=== PATIENT | male | born 2000 | race Caucasian/White ===

== ENCOUNTER 2024-05-16 09:58 | Outpatient (AMB) | payer OTHER, SELFPAY ==
--- NOTE | 2024-05-16 10:02 | MHC.PC.OV ---
Vital Signs 05/16/24 10:13 Height 5 ft 7 in Weight 180 lb 4 oz BMI 28.2 BP 124/78 Blood Pressure Location Lt brachial Position Sitting Respiration 16 Pulse 78 Pulse Source Pulse Oximeter Temp 97.9 F Temp Source Oral Pulse Oximetry (%) 100 Oxygen Delivery Method Room Air Intake Visit Reasons: Establish Care Intake Note: patient here for new patient visit. 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: No Allergies apple Allergy (Unknown, Uncoded 05/16/24 10:21) Hives monteiro Allergy (Unknown, Uncoded 05/16/24 10:21) Hives plum Allergy (Unknown, Uncoded 05/16/24 10:21) Hives unspecified nuts Allergy (Unknown, Uncoded 05/16/24 10:21) hives watermelon Allergy (Unknown, Uncoded 05/16/24 10:21) Hives Tobacco use date assessed: 05/16/24 Dental Screening Dental Screen Date: 05/16/24 Did you have a dental visit in the last 12 months?: No Did you have a dental problem in the last 6 months where you did not have access to dental care?: No Was dental information given to patient?: Patient has dentist HPI HPI Comments History of Present Illness Details New patient Prior PCP:? [facility] [place]. Dr Gray Campbell Last office visit/CPE: Over a year Acute issue(s): Anxiety, Depression -He is on Welbutrin 150mg daily Dandruff -He is on ketoconazole shampoo daily He notes history of telemedicine psychotherapy since July 2023. He stopped going after he found that his son was murdering people He was followed by a psychiatrist in the [place] area. However, he moved to [facility] after school and his psychiatrist required that he followed up in the office for her to continue refilling his Welbutin. He has a telehealth visit with his psychiatrist 2 weeks ago and his Welbutrin was refilled He notes that his anxiety and depressive symptoms are not the worst they have been. 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 He his anxious about the new environment and getting to know new coworkers. He admits to sleeping well. He has not been exercising unit after he stared his new job. He has not been making healthy dietary choices. He wishes to continue with the current Wellbutrin dose. He wants to connect with a new therapist via telemedicine. PMHx: Anxiety, depression, dandruff SurgHx: None FHx: MGF: Alcohol abuse SocHx: Nonsmoker. Uses 3-4 nicotine pouches daily. Drinks alcohol occasionally. He smokes cannabis, 1 joint and 2 vapes daily for the past 3 years He is not currently sexually active and has no concerns for STDs [facility] Medical History (Updated 05/16/24 @ 10:58 by Edward Palmer CNP) History of bipolar disorder Depression Anxiety Sinusitis Male circumcision Family History (Updated 05/16/24 @ 10:10 by Fani Valenzuela) Maternal Grandfather Alcohol abuse FH: mental illness Maternal Aunt Substance abuse Social History (Updated 05/16/24 @ 10:10 by Fani Valenzuela) Housing: Apartment Patient Tobacco Use Status: Never used Tobacco e-Cigarette/Vaping Use: Former Use Second Hand Smoke Exposure: No Substance Use Type: Marijuana service: No Current occupational status: employed Current occupation: data Current occupational exposures/hazards: No Cognitive needs: No Hearing needs: No Vision needs: No Questionnaire PHQ-9 Over the last 2 weeks, how often have you been bothered by any of the following problems? 1. Little interest or pleasure in doing things: several days 2. Feeling down, depressed, or hopeless: several days 3. Trouble falling or staying asleep, or sleeping too much: several days 4. Feeling tired or having little energy: more than half the days 5. Poor appetite or overeating: several days 6. Feeling bad about yourself - or that you are a failure or have let yourself or your family down: several days 7. Trouble concentrating on things, such as reading the newspaper or watching television: several days 8. Moving or speaking so slowly that other people could have noticed. Or the opposite - being so fidgety or restless that you have been moving around a lot more than usual: not at all 9. Thoughts that you would be better off or of hurting yourself in some way: not at all Total score: 8 Depression Screening Interpretation: Positive Depression Screening Follow-up: Existing condition and In treatment Depression Screening Done: Yes 09593 - PHQ-9 Billing: Yes Source: Developed by Drs. Francois Srivastava, Joana B.W. Ryan Mckenna and colleagues, with an educational candelario from [employer]. Thrive Questionnaire Date Thrive assessed: 05/16/24 I am a: Patient What is your living situation today?: I have a steady place to live Within the past 12 months, did the food you bought not last and you didn't have the money to get more?: Never true Within the past 12 months, did you worry whether your food would run out before you got money to buy more?: Never true Do you have trouble paying for medicines?: No Do you have trouble getting transportation to medical appointments?: No Do you have trouble paying your heating and electricity bill?: No Do you have trouble taking care of your child, family member or friend?: No Do you have trouble with day-to-day activities such as bathing, preparing meals, shopping, managing finances, etc.?: No Are you currently unemployed and looking for a job?: No Are you interested in more education?: No Please select the resources that you would like help with: None Currently or been in a relationship where the following occur: No concerns reported THRIVE Score: 0 AUDIT C Alcohol Use Questionnaire (AUDIT-C) 1. How often do you have a drink containing alcohol?: 2-4 times a month 2. How many drinks containing alcohol do you have on a typical day when you are drinking?: 3 or 4 3. How often do you have six or more drinks on one occasion?: Less than monthly Total Score: 4 Score Reviewed/Action Taken: Yes CONOR-7 AMB Questionnaire CONOR-7 Date CONOR - 7 assessed: 05/16/24 Feeling nervous, anxious, or on edge: 2 = More than half the days Not being able to stop or control worryin = Several days Worrying too much about different things: 2 = More than half the days Trouble relaxin = Several days Being so restless that it is hard to sit still: 1 = Several days Becoming easily annoyed or irritable: 1 = Several days Feeling afraid as if something awful might happen: 1 = Several days Total CONOR-7 score (0-4 normal; 5-9 mild; 10-14 moderate; 15-21 severe): 9 Source: Developed by Drs. Francois Srivastava, Ryan Sim and colleagues, with an educational candelario from [employer]. CONOR-7 Assessment Billing CONOR-7 Assessment Tool: CONOR-7 Assessment 13523 Review of Systems Const Details: Denies chills, Denies fatigue, Denies fever(s), Denies headache(s) and Denies weakness HEENT Denies change in vision, Denies dizziness, Denies headache(s), Denies hearing loss, Denies nasal congestion, Denies sinus pain, Denies sinus pressure and Denies sore throat Card Denies chest pain, Denies lightheadedness, Denies dyspnea and Denies other (palpitations) Resp Denies cough, Denies dyspnea and Denies wheezing GI Denies abdominal pain, Denies melena, Denies hematochezia, Denies change in bowel habits, Denies dyspepsia and Denies nausea Denies hematuria and Denies dysuria Musc Denies abnormal gait, Denies myalgias, Denies arthralgias, Denies numbness and Denies tingling Skin/Breast Denies rash, Denies unusual bruising and Denies wounds Neuro Denies abnormal gait, Denies dizziness, Denies headache(s), Denies memory loss, Denies numbness, Denies Sensory deficit (Neuro), Denies tingling and Denies weakness Psych Reports anxiety, Reports depression and Denies memory loss Endo Denies cold intolerance, Denies fatigue, Denies heat intolerance, Denies polydipsia and Denies polyuria Jose Elias/Lymph Denies easy bleeding and Denies easy bruising Aller/Immun Denies wheezing Physical exam (Primary Care) Vital Signs: Last Vital Signs Temp 97.9 F 05/16/24 10:13 Pulse 78 05/16/24 10:13 Resp 16 05/16/24 10:13 BP 124/78 05/16/24 10:13 Pulse Ox 100 05/16/24 10:13 Oxygen Delivery Method Room Air 05/16/24 10:13 BMI result Body Mass Index 28.2 Tobacco/Smoking Status: Tobacco use Status Tobacco use date assessed 05/16/24 05/16/24 10:10 Patient Tobacco Use Status Never used Tobacco 05/16/24 10:10 e-Cigarette/Vaping Use Former Use 05/16/24 10:10 PHQ-9: PHQ-9 Score PHQ-9: Total score 8 05/16/24 14:24 Depression Screening Interpretation: Positive Depression Screening Follow-up: Existing condition and In treatment Thrive Assessment: Date of Thrive Assessment Date Thrive assessed 05/16/24 05/16/24 10:17 Currently or been in a relationship where the following occur: No concerns reported Const Other: General: no acute distress, well developed, alert and awake Nutritional Appearance: well nourished Orientation/consciousness: patient oriented x3 HENMT Head: Yes normocephalic and Yes atraumatic Ears: hearing grossly normal bilaterally and TM's normal bilaterally General nose exam: Normal external nose present and Normal nares present Mouth: Normal oral and palatal mucosa present and moist mucous membranes Teeth and gingiva: dentition normal Throat: Yes oropharynx normal Eyes Pupils: Equal, round and reactive pupils present and Pupil accommodation reflex normal EOM: EOMs intact bilaterally Neck Neck: Yes normal visual inspection, Yes no lymphadenopathy and Yes trachea midline Thyroid: Thyroid normal Carotids: no bruits Lymphatic: no lymphadenopathy noted Chest Chest palpation & inspection: normal inspection of the chest Resp Effort & Inspection: normal respiratory effort Auscultation: clear to auscultation bilaterally Cardio Rate: regular rate Rhythm: regular rhythm Heart sounds: S1 normal heart sound present, S2 normal heart sound present, no gallops, no murmurs and no rubs Bruits: no abdominal aortic bruits and no carotid bruits GI Palpation (GI): No Abdominal aortic bruit present, Soft to palpation, nontender, No hepatosplenomegaly present and No Rebound tenderness present Auscultation: normal bowel sounds General: Yes no CVA tenderness Back/Spine/Pelvis Back: no CVA tenderness Cervical Spine: cervical ROM normal and No Cervical spine tenderness Thoracic/Lumbar Spine: thoraco-lumbar ROM normal, No pain with thoraco-lumbar ROM, No thoracic spinal tenderness and No lumbar spinal tenderness Skin General: warm and dry. Normal skin color. Normal skin turgor. Dry scalp notes with dandruff noted Lesions: no lesions Rashes: no rashes Trauma: no lacerations or abrasions Wounds: no wounds Nails: normal Neuro General: patient oriented x3, gait normal and CN's II-XI intact bilaterally Cranial nerves: Yes Equal, round and reactive pupils present Cognition (Neuro): normal cognition Gait exam (Neuro): Normal gait present Motor exam (neuro): 5/5 motor strength present throughout Sensory Exam: No Sensory deficit (Neuro) Deep tendon reflexes (DTR's): Right patellar reflex intensity grade: 2+ and Left patellar reflex intensity grade: 2+ Extrem General: Yes normal to inspection, No edema and No calf tenderness Psych Appearance: grossly normal Affect: normal affect Attitude: cooperative Thought process: Normal thought process present Assessment and Plan Assessment & Plan (1) Normal physical examination, routine: Code(s): Z00.00 - Encounter for general adult medical examination without abnormal findings Plan: No significant physical restrictions or limitations noted Continue current treatment regimen Healthy diet and routine exercise encouraged Encouraged to schedule an appointment with his dentist for routine dental care Advised to get lab work done and follow-up in 3-4 weeks for telehealth visit for anxiety, depression, and labs review Return with symptoms or concerns Verbalized understanding and agreed with thetreatment plan (2) Anxiety and depression: Code(s): F41.9 - Anxiety disorder, unspecified; F32.A - Depression, unspecified Plan: He notes that his anxiety and depressive symptoms are not the worst they have been. He started a new job 3 weeks ago and is anxious about the new work environment and new coworkers. Sleep has not been an issue PHQ-9 and CONOR-7 scores revealed mild depression and anxiety Continue to take Wellbutrin 150 mg daily Routine exercise encouraged Advised to stop or limit cannabis use as this may worsen his anxiety and depressive symptoms He met with the [facility] who will refer him to a therapist Follow up in 3-4 weeks or sooner with symptoms or concerns Verbalized understanding and agreed with the treatment plan (3) Dandruff: Code(s): L21.0 - Seborrhea capitis Plan: Dry scalp notes with dandruff noted Ketoconazole shampoo as prescribed (4) Nicotine use: Code(s): Z72.0 - Tobacco use Plan: Uses 3-4 nicotine pouches daily Declines medication treatment for nicotine use Instructed on health risks and complications of nicotine use He may inform his PCP if he changes his mind on medication treatment Verbalized understanding and agreed with the plan (5) Laboratory tests ordered as part of a complete physical exam (CPE): Code(s): Z00.00 - Encounter for general adult medical examination without abnormal findings Plan: Fasting labs ordered as part of a complete physical exam. Advised to fast for at least 10 hours before getting labs drawn. May drink water Verbalized understanding and agreed with treatment plan. Orders: Orders Lipid Panel Today Z00.00 - Encounter for general adult medical examination without abnormal findings Complete Blood Count Auto Diff Today Z00.00 - Encounter for general adult medical examination without abnormal findings Comprehensive Cades. Panel Fast Today Z00.00 - Encounter for general adult medical examination without abnormal findings TSH reflex Free T4 Today Z00.00 - Encounter for general adult medical examination without abnormal findings UA CC w/rflx Micro + Cult Today Z00.00 - Encounter for general adult medical examination without abnormal findings Coding Level of Care Code New Pt Level 3 (46696) New Pt Prev Care 18-39yr(67175 Diagnoses Normal physical examination, routine Z00.00 Anxiety and depression F41.9; F32.A Dandruff L21.0 Nicotine use Z72.0 Laboratory tests ordered as part of a complete physical exam (CPE) Z00.00 Additional Codes CONOR-7 Assessment Billing - CONOR-7 Assessment Tool: CONOR-7 Assessment [id number] ([id number])
[2024-05-16 10:13] VITALS: BP 124/78; PULSE 78; RESP 16; TEMP 36.6; O2SAT 100; BMI 28.2
== END 2024-05-16 10:57 | disposition home or self-care (01) ==
PROVIDERS: Visit Provider Nurse Practitioner Family
DX: Z00.00 Encounter for general adult medical examination without abnormal findings (principal); F41.9 Anxiety disorder, unspecified; F32.A Depression, unspecified; L21.0 Seborrhea capitis; Z72.0 Tobacco use
CPT/HCPCS: 99385

== ENCOUNTER 2024-06-27 12:04 | Outpatient (AMB) | payer OTHER, SELFPAY ==
--- NOTE | 2024-06-27 12:09 | A.OFFPC_ITS ---
Vital Signs 06/27/24 12:20 Height 5 ft 7 in Weight 180 lb 4 oz BMI 28.2 BP 112/78 Blood Pressure Location Lt brachial Position Sitting Respiration 16 Pulse 80 Pulse Source Pulse Oximeter Temp 97.3 F Temp Source Oral Pulse Oximetry (%) 99 Oxygen Delivery Method Room Air Intake Visit Reasons: 3-4 wks anxiety, depression, labs Intake Note: patient here for 3-4 wks anxiety, depression and labs. 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 Allergies apple Allergy (Unknown, Uncoded 06/27/24 12:45) Hives monteiro Allergy (Unknown, Uncoded 06/27/24 12:45) Hives plum Allergy (Unknown, Uncoded 06/27/24 12:45) Hives unspecified nuts Allergy (Unknown, Uncoded 06/27/24 12:45) hives watermelon Allergy (Unknown, Uncoded 06/27/24 12:45) Hives Medication List - Last Reconciled 06/27/24 by Edward Palmer CNP bupropion HCl XL 150 mg PO DAILY ketoconazole 2% topical Tobacco use date assessed: 06/27/24 Dental Screening Dental Screen Date: 06/27/24 Did you have a dental visit in the last 12 months?: Yes Did you have a dental problem in the last 6 months where you did not have access to dental care?: No Was dental information given to patient?: Patient has dentist HPI HPI Comments History of Present Illness Details 23-year-old male, accompanied by his mot her, presents for anxiety and depression follow-up He admits to taking Wellbutrin as prescribed without adverse reactions He offers no complaints and denies acute symptoms at the time He reports controlled mood. He generally sleeps well No acute symptoms [facility] Medical History (Updated 05/16/24 @ 10:58 by Edward Palmer CNP) History of bipolar disorder Depression Anxiety Sinusitis Male circumcision Family History (Updated 06/27/24 @ 13:54 by Fani Valenzuela) Maternal Grandfather Alcohol abuse FH: mental illness Crohn's disease Dementia HTN (hypertension) Maternal Aunt Substance abuse Maternal Grandmother HTN (hypertension) HLD (hyperlipidemia) FH: brain aneurysm CHD (congenital heart disease) Paternal Grandmother HTN (hypertension) HLD (hyperlipidemia) Mother HLD (hyperlipidemia) Paternal Grandfather HLD (hyperlipidemia) Aortic aneurysm Prostate cancer Social History (Updated 05/16/24 @ 10:10 by Fani Valenzuela) Housing: Apartment Patient Tobacco Use Status: Never used Tobacco e-Cigarette/Vaping Use: Former Use Second Hand Smoke Exposure: No Substance Use Type: Marijuana service: No Current occupational status: employed Current occupation: data Current occupational exposures/hazards: No Cognitive needs: No Hearing needs: No Vision needs: No Questionnaire PHQ-9 Over the last 2 weeks, how often have you been bothered by any of the following problems? 1. Little interest or pleasure in doing things: several days 2. Feeling down, depressed, or hopeless: several days 3. Trouble falling or staying asleep, or sleeping too much: more than half the days 4. Feeling tired or having little energy: several days 5. Poor appetite or overeating: not at all 6. Feeling bad about yourself - or that you are a failure or have let yourself or your family down: several days 7. Trouble concentrating on things, such as reading the newspaper or watching television: several days 8. Moving or speaking so slowly that other people could have noticed. Or the opposite - being so fidgety or restless that you have been moving around a lot more than usual: not at all 9. Thoughts that you would be better off or of hurting yourself in some way: not at all Total score: 7 Depression Screening Interpretation: Negative Depression Screening Done: Yes 75126 - PHQ-9 Billing: Yes Source: Developed by Drs. Francois Srivastava, Joana Mckenna, Ryan Peres and colleagues, with an educational candelario from [employer]. Thrive Questionnaire Date Thrive assessed: 05/16/24 CONOR-7 AMB Questionnaire CONOR-7 Date CONOR - 7 assessed: 06/27/24 Feeling nervous, anxious, or on edge: 2 = More than half the days Not being able to stop or control worryin = More than half the days Worrying too much about different things: 2 = More than half the days Trouble relaxin = Several days Being so restless that it is hard to sit still: 1 = Several days Becoming easily annoyed or irritable: 1 = Several days Feeling afraid as if something awful might happen: 1 = Several days Total CONOR-7 score (0-4 normal; 5-9 mild; 10-14 moderate; 15-21 severe): 10 Source: Developed by Drs. Francois Srivastava, Joana Mckenna, Ryan Peres and colleagues, with an educational candelario from [employer]. CONOR-7 Assessment Billing CONOR-7 Assessment Tool: CONOR-7 Assessment 71424 Review of Systems Const Details: Const Denies chills, Denies fatigue, Denies fever(s), Denies headache(s) and Denies weakness ENT Denies dizziness and Denies headache(s) Card Denies chest pain, Denies lightheadedness, Denies dyspnea and Denies other (Palpitations) Resp Denies cough, Denies dyspnea, Denies wheezing and Denies other ( shortness of breath) GI Denies abdominal pain, Denies melena, Denies hematochezia, Denies change in bowel habits, Denies dyspepsia and Denies nausea Denies hematuria and Denies dysuria Musc Denies abnormal gait, Denies myalgias, Denies arthralgias, Denies numbness and Denies tingling Skin/Breast Denies rash, Denies unusual bruising and Denies wounds Neuro Denies abnormal gait, Denies dizziness, Denies headache(s), Denies memory loss, Denies numbness, Denies Sensory deficit (Neuro), Denies tingling and Denies weakness Psych Denies anxiety, Denies depression, Denies memory loss Endo Denies cold intolerance, Denies fatigue, Denies heat intolerance, Denies polydipsia and Denies polyuria Aller/Immun Denies wheezing Physical exam (Primary Care) Vital Signs: Last Vital Signs Temp 97.3 F 06/27/24 12:20 Pulse 80 06/27/24 12:20 Resp 16 06/27/24 12:20 BP 112/78 06/27/24 12:20 Pulse Ox 99 06/27/24 12:20 Oxygen Delivery Method Room Air 06/27/24 12:20 BMI result Body Mass Index 28.2 Tobacco/Smoking Status: Tobacco use Status Tobacco use date assessed 06/27/24 06/27/24 12:19 Patient Tobacco Use Status Never used Tobacco 06/27/24 12:12 e-Cigarette/Vaping Use Former Use 06/27/24 12:12 PHQ-9: PHQ-9 Score PHQ-9: Total score 7 06/27/24 12:50 Depression Screening Interpretation: Negative Thrive Assessment: Date of Thrive Assessment Date Thrive assessed 05/16/24 06/27/24 12:12 Const Other: General: no acute distress and well developed Nutritional Appearance: well nourished Orientation/consciousness: patient oriented x3 HENMT Head: Yes normocephalic and Yes atraumatic Eyes General: appearance normal, both eyes and all related structures Pupils: Equal, round and reactive pupils present EOM: EOMs intact bilaterally Resp Effort & Inspection: normal respiratory effort Auscultation: clear to auscultation bilaterally Cardio Rate: regular rate Rhythm: regular rhythm Heart sounds: S1 normal heart sound present, S2 normal heart sound present, no gallops, no murmurs and no rubs GI Palpation (GI): No Abdominal aortic bruit present, Soft to palpation, nontender, No hepatosplenomegaly present and No Rebound tenderness present Auscultation: normal bowel sounds General: Yes no CVA tenderness Back/Spine/Pelvis Back: no CVA tenderness Cervical Spine: cervical ROM normal and No Cervical spine tenderness Thoracic/Lumbar Spine: thoraco-lumbar ROM normal, No pain with thoraco-lumbar ROM, No thoracic spinal tenderness and No lumbar spinal tenderness Extrem General: Yes normal to inspection, No edema and No calf tenderness Skin General: warm and dry. Normal skin color. Normal skin turgor Neuro General: patient oriented x3, gait normal and no focal neuro deficit Cranial nerves: Yes Equal, round and reactive pupils present Cognition (Neuro): normal cognition Gait exam (Neuro): Normal gait present Sensory Exam: No Sensory deficit (Neuro) Psych Appearance: grossly normal Affect: normal affect Attitude: cooperative Thought process: Normal thought process present Assessment and Plan Assessment & Plan (1) Anxiety and depression: Code(s): F41.9 - Anxiety disorder, unspecified; F32.A - Depression, unspecified Plan: Reports controlled mood PHQ-9 and CONOR-7 scores revealed mild depression and moderate anxiety respectively Continue current treatment regimen Routine exercise encouraged Follow-up in 3 months or sooner with symptoms or concerns He had lab work done today. Will review results and make changes as needed Verbalized understanding and agreed with the treatment plan Coding Level of Care Code Est Pt Level 3 (88816) Diagnoses Anxiety and depression F41.9; F32.A Additional Codes CONOR-7 Assessment Billing - CONOR-7 Assessment Tool: CONOR-7 Assessment 29115 ([id number])
[2024-06-27 12:20] VITALS: BP 112/78; PULSE 80; RESP 16; TEMP 36.3; O2SAT 99; BMI 28.2
== END 2024-06-27 12:56 | disposition home or self-care (01) ==
PROVIDERS: Visit Provider Nurse Practitioner Family
DX: F41.9 Anxiety disorder, unspecified (principal); F32.A Depression, unspecified

== ENCOUNTER → 2024-06-27 12:04 | Outpatient (BNVA) | payer OTHER, SELFPAY | PROVIDERS: Visit Provider Nurse Practitioner Family ==

== ENCOUNTER 2024-06-27 12:08 | Outpatient (REF) | payer OTHER, SELFPAY ==
[2024-06-27 15:16] LABS: MANUAL DIFF FLAG NO
[2024-06-27 15:25] LABS: Basophils Absolute Auto 0.1 X10*3/uL (0.0-0.2); Basophils Percent Auto 1.2 % (0-2); Eosinophils Absolute Auto 0.5 X10*3/uL (0.0-0.4); Eosinophils Percent Auto 6.1 % (0-4); Hematocrit 48.9 % (42.0-52.0); Hemoglobin 16.6 g/dl (14.0-18.0); Imm Gran Abs Auto 0.03 X10*3/uL (0.00-0.03); Imm Gran Pct Auto 0.4 % (0.0-0.4); Lymphocytes Absolute Auto 2.5 X10*3/uL (1.2-4.9); Lymphocytes Percent Auto 32.2 % (20-40); Mean Corpuscular HGB Conc 33.9 g/dl (31.0-36.0); Mean Corpuscular Volume 85.5 fL (80.0-98.0); Mean Platelet Volume 10.4 fL (9.4-12.4); Monocytes Absolute Auto 0.8 X10*3/uL (0.1-1.2); Monocytes Percent Auto 10.1 % (2-11); Neutrophils Absolute Auto 3.8 x10*3/uL (2.0-8.3); Platelet Count 244 X10*3/uL (160-400); Red Blood Count 5.72 X10*6/uL (4.60-5.80); Red Cell Distribution Width 12.4 % (11.0-16.0); White Blood Count 7.7 X10*3/uL (4.8-10.8)
[2024-06-27 15:44] LABS: Appearance Urine Clear; Color Urine Yellow; Glucose Urine UA Negative (Negative); Leukocyte Esterase Urine Negative (Negative); Nitrite Urine Negative (Negative); PH 5.5 (5.0-9.0); Specific Gravity - Urine 1.025 (1.005-1.025); Urine Blood Negative (Negative); Urine Ketones Negative (Negative); Urine Protein Negative (Neg-Trace)
[2024-06-27 15:54] LABS: Anion Gap 14 (12-20); Blood Urea Nitrogen 16 mg/dL (9-16); Carbon Dioxide 27 mmol/L (22-29); Chloride 105 mmol/L (96-108); Potassium 4.1 mmol/L (3.3-5.1); Sodium 142 mmol/L (135-145)
[2024-06-27 15:55] LABS: Alanine Aminotransferase 38 U/L (0-40); Albumin Level 5.1 g/dL (3.5-5.0); Alkaline Phosphatase 64 U/L (39-117); Aspartate Amino Transferase 25 U/L (5-37); Bilirubin Total 0.9 mg/dL (0.0-1.0); Calcium 10.3 mg/dL (8.4-10.2); Cholesterol 182 mg/dL (<200); Estimated Glomerular Filt Rate > 60; Glucose Fasting 88 mg/dL (60-99); HDL Cholesterol 67 mg/dL (>40); LDL Cholesterol Calculated 97 mg/dL (<100); Total Protein 8.4 g/dL (6.5-8.0); Triglycerides 93 mg/dL (<150)
[2024-06-27 16:12] LABS: TSH reflex Free T4 1.15 uIU/mL (0.32-4.0)
== END 2024-06-27 12:09 | disposition home or self-care (01) ==
LOC: HO.WFDLDS 12:08
PROVIDERS: Visit Provider Nurse Practitioner Family
DX: Z00.00 Encounter for general adult medical examination without abnormal findings (principal); F41.9 Anxiety disorder, unspecified; F32.A Depression, unspecified
CPT/HCPCS: 36415; 80053; 80061; 81003; 84443; 85025; 96127; 99212

== ENCOUNTER 2024-08-05 15:08 | Outpatient (AMB) | payer OTHER, SELFPAY ==
--- NOTE | 2024-08-05 15:13 | MHC.PC.OV ---
Vital Signs 08/05/24 15:22 Height 5 ft 7 in Weight 179 lb 6 oz BMI 28.1 BP 120/80 Blood Pressure Location Lt brachial Position Sitting Respiration 16 Pulse 86 Pulse Source Pulse Oximeter Temp 98.5 F Temp Source Oral Pulse Oximetry (%) 98 Oxygen Delivery Method Room Air Intake Visit Reasons: Testicle pain and tenderness Intake Note: patient here c/o testicle pain and tenderness for a couple days Manager Office Required: No Allergies apple Allergy (Unknown, Uncoded 06/27/24 12:45) Hives monteiro Allergy (Unknown, Uncoded 06/27/24 12:45) Hives plum Allergy (Unknown, Uncoded 06/27/24 12:45) Hives unspecified nuts Allergy (Unknown, Uncoded 06/27/24 12:45) hives watermelon Allergy (Unknown, Uncoded 06/27/24 12:45) Hives Tobacco use date assessed: 08/05/24 Dental Screening Dental Screen Date: 08/05/24 Did you have a dental visit in the last 12 months?: Yes Did you have a dental problem in the last 6 months where you did not have access to dental care?: No Was dental information given to patient?: Patient has dentist HPI HPI Comments History of Present Illness Details 23-year-old male presents with complaints of right testicular pain which he experienced 2 days ago. He denies constitutional symptoms. He has not been sexually active in over 2 years and has no concerns for STDs. [facility] Medical History (Updated 08/05/24 @ 15:52 by Edward Palmer CNP) History of bipolar disorder Depression Anxiety Sinusitis Male circumcision Family History (Updated 06/27/24 @ 13:54 by Fani Valenzuela MA) Maternal Grandfather Alcohol abuse FH: mental illness Crohn's disease Dementia HTN (hypertension) Maternal Aunt Substance abuse Maternal Grandmother HTN (hypertension) HLD (hyperlipidemia) FH: brain aneurysm CHD (congenital heart disease) Paternal Grandmother HTN (hypertension) HLD (hyperlipidemia) Mother HLD (hyperlipidemia) Paternal Grandfather HLD (hyperlipidemia) Aortic aneurysm Prostate cancer Social History (Updated 05/16/24 @ 10:10 by Fani Valenzuela MA) Housing: Apartment Patient Tobacco Use Status: Never used Tobacco e-Cigarette/Vaping Use: Former Use Second Hand Smoke Exposure: No Substance Use Type: Marijuana service: No Current occupational status: employed Current occupation: data Current occupational exposures/hazards: No Cognitive needs: No Hearing needs: No Vision needs: No Questionnaire PHQ-9 Over the last 2 weeks, how often have you been bothered by any of the following problems? 1. Little interest or pleasure in doing things: several days 2. Feeling down, depressed, or hopeless: several days 3. Trouble falling or staying asleep, or sleeping too much: several days 4. Feeling tired or having little energy: several days 5. Poor appetite or overeating: several days 6. Feeling bad about yourself - or that you are a failure or have let yourself or your family down: several days 7. Trouble concentrating on things, such as reading the newspaper or watching television: several days 8. Moving or speaking so slowly that other people could have noticed. Or the opposite - being so fidgety or restless that you have been moving around a lot more than usual: not at all 9. Thoughts that you would be better off or of hurting yourself in some way: not at all Total score: 7 Depression Screening Interpretation: Negative Depression Screening Done: Yes 72738 - PHQ-9 Billing: Yes Source: Developed by Drs. Francois Srivastava, Joana Mckenna, Ryan Peres and colleagues, with an educational candelario from [employer]. Thrive Questionnaire Date Thrive assessed: 08/05/24 I am a: Patient What is your living situation today?: I have a steady place to live Within the past 12 months, did the food you bought not last and you didn't have the money to get more?: Never true Within the past 12 months, did you worry whether your food would run out before you got money to buy more?: Never true Do you have trouble paying for medicines?: No Do you have trouble getting transportation to medical appointments?: No Do you have trouble paying your heating and electricity bill?: No Do you have trouble taking care of your child, family member or friend?: No Do you have trouble with day-to-day activities such as bathing, preparing meals, shopping, managing finances, etc.?: No Are you currently unemployed and looking for a job?: No Are you interested in more education?: No Please select the resources that you would like help with: None Currently or been in a relationship where the following occur: No concerns reported THRIVE Score: 0 AUDIT C Alcohol Use Questionnaire (AUDIT-C) 1. How often do you have a drink containing alcohol?: 2-4 times a month 2. How many drinks containing alcohol do you have on a typical day when you are drinking?: 3 or 4 3. How often do you have six or more drinks on one occasion?: Less than monthly Total Score: 4 CONOR-7 AMB Questionnaire CONOR-7 Date CONOR - 7 assessed: 08/05/24 Feeling nervous, anxious, or on edge: 2 = More than half the days Not being able to stop or control worryin = Several days Worrying too much about different things: 1 = Several days Trouble relaxin = Several days Being so restless that it is hard to sit still: 1 = Several days Becoming easily annoyed or irritable: 1 = Several days Feeling afraid as if something awful might happen: 1 = Several days Total CONOR-7 score (0-4 normal; 5-9 mild; 10-14 moderate; 15-21 severe): 8 Source: Developed by Drs. Francois Srivastava, Joana Mckenna, Ryan Peres and colleagues, with an educational candelario from [employer]. Review of Systems Const Details: Const Denies chills, Denies fatigue, Denies fever(s), Denies headache(s) and Denies weakness ENT Denies dizziness and Denies headache(s) Card Denies chest pain, Denies lightheadedness, Denies dyspnea and Denies other (Palpitations) Resp Denies cough, Denies dyspnea, Denies wheezing and Denies other ( shortness of breath) GI Denies abdominal pain, Denies melena, Denies hematochezia, Denies change in bowel habits, Denies dyspepsia and Denies nausea Reports as per HPI Musc Denies abnormal gait, Denies myalgias, Denies arthralgias, Denies numbness and Denies tingling Skin/Breast Denies rash, Denies unusual bruising and Denies wounds Neuro Denies abnormal gait, Denies dizziness, Denies headache(s), Denies memory loss, Denies numbness, Denies Sensory deficit (Neuro), Denies tingling and Denies weakness Endo Denies cold intolerance, Denies fatigue, Denies heat intolerance, Denies polydipsia and Denies polyuria Aller/Immun Denies wheezing Physical exam (Primary Care) Vital Signs: Last Vital Signs Temp 98.5 F 08/05/24 15:22 Pulse 86 08/05/24 15:22 Resp 16 08/05/24 15:22 BP 120/80 08/05/24 15:22 Pulse Ox 98 08/05/24 15:22 Oxygen Delivery Method Room Air 08/05/24 15:22 BMI result Body Mass Index 28.1 Tobacco/Smoking Status: Tobacco use Status Tobacco use date assessed 08/05/24 08/05/24 15:23 Patient Tobacco Use Status Never used Tobacco 08/05/24 15:16 e-Cigarette/Vaping Use Former Use 08/05/24 15:16 PHQ-9: PHQ-9 Score PHQ-9: Total score 7 08/05/24 15:23 Depression Screening Interpretation: Negative Thrive Assessment: Date of Thrive Assessment Date Thrive assessed 08/05/24 08/05/24 15:23 Currently or been in a relationship where the following occur: No concerns reported Const Other: General: no acute distress and well developed Nutritional Appearance: well nourished Orientation/consciousness: patient oriented x3 HENMT Head: Yes normocephalic and Yes atraumatic Eyes General: appearance normal, both eyes and all related structures Pupils: Equal, round and reactive pupils present EOM: EOMs intact bilaterally Resp Effort & Inspection: normal respiratory effort Auscultation: clear to auscultation bilaterally Cardio Rate: regular rate Rhythm: regular rhythm Heart sounds: S1 normal heart sound present, S2 normal heart sound present, no gallops, no murmurs and no rubs GI Palpation (GI): No Abdominal aortic bruit present, Soft to palpation, nontender, No hepatosplenomegaly present and No Rebound tenderness present Auscultation: normal bowel sounds General: Yes no CVA tenderness. Right testicle with a small, tender mobile lump. No overt scrotal swelling or infection Back/Spine/Pelvis Back: no CVA tenderness Extrem General: Yes normal to inspection, No edema and No calf tenderness Skin General: warm and dry. Normal skin color. Normal skin turgor Neuro General: patient oriented x3, gait normal and no focal neuro deficit Cranial nerves: Yes Equal, round and reactive pupils present Cognition (Neuro): normal cognition Gait exam (Neuro): Normal gait present Sensory Exam: No Sensory deficit (Neuro) Psych Appearance: grossly normal Affect: normal affect Attitude: cooperative Thought process: Normal thought process present Coding Level of Care Code Est Pt Level 3 (31757) Diagnoses Testicular pain, right N50.811 Assessment & Plan Assessment & Plan (1) Testicular pain, right: Code(s): N50.811 - Right testicular pain Category: Medical Plan: Reports right testicular pain for the past 3 days Right testicle with a small, tender mobile lump. No overt scrotal swelling or infection Lilely varicocele, epididymal cyst/spermatocele, epididymitis, or orchitis, Will order stat ultrasound. Will review results and make changes as needed May take Tylenol ibuprofen as needed for pain or discomfort Follow-up or go to the ED with severe pain or fever, chills, body aches, or swelling Verbalized understanding and agreed with the plan Orders: Orders US scrotum Today N50.811 - Right testicular pain
[2024-08-05 15:22] VITALS: BP 120/80; PULSE 86; RESP 16; TEMP 36.9; O2SAT 98; BMI 28.1
== END 2024-08-05 15:51 | disposition home or self-care (01) ==
LOC: HO.HMCFM 15:09
PROVIDERS: Visit Provider Nurse Practitioner Family
DX: N50.811 Right testicular pain (principal)

== ENCOUNTER → 2024-08-05 15:08 | Outpatient (BNVA) | payer OTHER, SELFPAY | PROVIDERS: Visit Provider Nurse Practitioner Family | DX: N50.811 Right testicular pain (principal) | CPT/HCPCS: 99212 ==